=== PATIENT | male | born 1990 | race Caucasian/White ===

== ENCOUNTER 2017-02-04 15:54 | Emergency (ER) | payer MEDICAID ==
[~2017-02-04] VITALS: Ht 190.5 cm; Wt 143.6 kg
[~2017-02-04 15:54] MED LIST: LEVE500T53 PO; PROP10TA PO
[2017-02-04 16:40] LABS: HEMOGLOBIN 15.3 g/dL (13.7-18.0)
[2017-02-04 16:53] LABS: BLOOD UREA NITROGEN 7 mg/dL (7-18)
[2017-02-04 17:43] VITALS: BP 164/78
== END 2017-02-04 17:47 | disposition home or self-care (01) ==
LOC: ED 17:40
DX: M79.605 Pain in left leg (principal); F41.1 Generalized anxiety disorder; F17.200 Nicotine dependence, unspecified, uncomplicated; I10 Essential (primary) hypertension
CPT/HCPCS: 36415; 80048; 82040; 85025

== ENCOUNTER 2018-02-05 16:41 | Emergency (ER) | payer MEDICAID ==
[~2018-02-05] VITALS: Ht 190.5 cm; Wt 150.9 kg
[2018-02-05 16:43] VITALS: BP 142/92
[2018-02-05] MEDS ORDERED: IBUPROFEN 800 MG TABLET PO STA (17:07)
[2018-02-05] MEDS ORDERED: PENICILLIN VK 500MG TABLET PO STA (17:07)
[2018-02-05] MEDS ORDERED: PENICILLIN VK 500MG TABLET ONE (17:12)
[2018-02-05] MEDS ORDERED: IBUPROFEN 200 MG TABLET ONE (17:13)
== END 2018-02-05 17:26 | disposition home or self-care (01) ==
LOC: ED 17:00
DX: K02.9 Dental caries, unspecified (principal); I10 Essential (primary) hypertension
CPT/HCPCS: 99283